=== PATIENT | male | born 1965 | race African-American/Black ===

== ENCOUNTER 2018-04-23 12:15 | Outpatient (CLI) | payer OTHER ==
--- NOTE | 2018-04-23 15:45 | MRI ---
MRI OF THE RIGHT SHOULDER WITHOUT CONTRAST: Date: 04/23/18 INDICATION: History of right shoulder injury. COMPARISON: Prior exam dated 02/09/15. FINDINGS: There has been interval development of a partial thickness intratendinous tear of the posterior supra spinatus and anterior infraspinatus at the conjoined tendon on image 18 of series 5 involving less th an 1/3 of the tendon thickness. There is mild supraspinatus and infraspinatus tendinosis. There is mi ld fluid in the subacromial/subdeltoid bursa. Biceps anchor complex and long head of the biceps tendo n appears within normal limits. The inferior glenohumeral labral ligamentous complex appears within n ormal limits. The glenohumeral articular surface is normal appearing. No paralabral cyst is evident. No muscular atrophy is present. There is mild AC joint osteoarthrosis that appears relatively stable to the prior exam. No muscular atrophy is evident. IMPRESSION: 1. 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 2. Increased fluid in the subacromial/subdeltoid bursa may reflect mild bursitis. 3. Stable mild AC joint osteoarthrosis. POS: [facility]
== END 2018-04-23 12:16 | disposition home or self-care (01) ==
LOC: SCSMRI 12:15
PROVIDERS: ATTEND Family Medicine
DX: S49.91XD Unspecified injury of right shoulder and upper arm, subsequent encounter (principal); M19.011 Primary osteoarthritis, right shoulder; M75.101 Unspecified rotator cuff tear or rupture of right shoulder, not specified as traumatic; S46.811A Strain of other muscles, fascia and tendons at shoulder and upper arm level, right arm, initial encounter